=== PATIENT | female | born 1980 ===

== ENCOUNTER 2024-06-25 21:35 | Emergency (ER) | payer MEDICAID ==
[~2024-06-25] VITALS: Ht 172.7 cm; Wt 90.7 kg
[2024-06-25] MEDS ORDERED: ASPIRIN 81 MG TAB.CHEW ONE (22:21)
[2024-06-25] MEDS: ASPIRIN 81 MG TAB.CHEW PO ONE (22:23)
[2024-06-25] MEDS ORDERED: ACETAMINOPHEN 500 MG TABLET ONE (22:26)
[2024-06-25] MEDS: ACETAMINOPHEN 500 MG TABLET PO ONE (22:28)
[2024-06-25] MEDS: LORAZEPAM 0.5 MG TABLET PO ONE (22:29)
[2024-06-25] MEDS ORDERED: LORAZEPAM 1 MG TABLET ONE (22:29)
[2024-06-25 22:31] LABS: BASOPHILS % (AUTO) 0.5 % (0.0-2.0); EOSINOPHILS # (AUTO) 0.3 K/uL (0.0-0.7); EOSINOPHILS % (AUTO) 4.5 % (0.0-7.0); HEMATOCRIT 31.2 % (31.2-41.9); HEMOGLOBIN 9.8 g/dL (10.9-14.3); LYMPHOCYTES # (AUTO) 1.5 K/uL (0.8-4.8); LYMPHOCYTES % (AUTO) 25.7 % (20.5-51.5); MEAN CORPUSCULAR HEMOGLOBIN 21.9 uug (24.7-32.8); MEAN CORPUSCULAR HGB CONC 32 g/dL (32.3-35.6); MEAN CORPUSCULAR VOLUME 69.4 fL (75.5-95.3); MONOCYTES # (AUTO) 0.4 K/uL (0.1-1.30); MONOCYTES % (AUTO) 6.6 % (0.0-11.0); NEUTROPHILS # (AUTO) 3.6 K/uL (1.8-8.9); NEUTROPHILS % (AUTO) 62.7 % (38.5-71.5); PLATELET COUNT (AUTO) 130 K/uL (179-408); RED CELL DISTRIBUTION WIDTH 31.6 % (12.3-17.7); WHITE BLOOD COUNT (AUTO) 5.7 K/uL (3.8-11.8)
[2024-06-25 22:33] LABS: DIFFERENTIAL COMMENT 1
[2024-06-25 22:46] LABS: CALCIUM 9.3 mg/dL (8.5-10.1); CARBON DIOXIDE 27 mmol/L (21-32); CHLORIDE 102 mmol/L (98-107); CREATININE 0.5 mg/dL (0.6-1.3); GLUCOSE 122 mg/dL (74-106); POTASSIUM 5.5 mmol/L (3.5-5.1); SODIUM SERUM 138 mmol/L (136-145); UREA NITROGEN, BLOOD 11 mg/dL (7-18)
[2024-06-25 22:48] LABS: ETHANOL < 3 MG/DL (0-10)
[2024-06-25 22:53] LABS: ACETAMINOPHEN < 10.0 ug/mL (10-30); ALANINE AMINOTRANSFERASE 42 U/L (14-59); ALBUMIN 3.3 g/dL (3.4-5.0); ALKALINE PHOSPHATASE 45 U/L (50-136); ASPARTATE AMINOTRANSFERASE 65 U/L (15-37); BILIRUBIN,DIRECT 0.1 mg/dL (0.0-0.2); BILIRUBIN,TOTAL 0.4 mg/dL (0.2-1.0); TOTAL PROTEIN, SERUM 7.1 g/dL (6.4-8.2)
[2024-06-25 23:21] LABS: EOSINOPHILS % (MANUAL) 3 % (0-8); HYPOCHROMASIA 1+; LYMPHOCYTES % (MANUAL) 28 % (20-40); MONOCYTES % (MANUAL) 10 % (2-10); NEUTROPHILS % (MANUAL) 59 % (42-75); PLATELET ESTIMATE SLIGHT DECREASED
[2024-06-25 23:23] LABS: ANISOCYTOSIS 1+
[2024-06-26] MEDS ORDERED: LORAZEPAM 1 MG TABLET ONE (04:53)
[2024-06-26] MEDS ORDERED: ACETAMINOPHEN 500 MG TABLET ONE (04:55)
[2024-06-26] MEDS: LORAZEPAM 0.5 MG TABLET PO ONE (04:55)
[2024-06-26 05:00] VITALS: TEMP 98
[2024-06-26] MEDS: ACETAMINOPHEN 500 MG TABLET PO ONE (05:00)
[2024-06-26 08:00] VITALS: O2SAT 98
== END 2024-06-26 08:40 ==
LOC: ER 21:40
DX: R07.9 Chest pain, unspecified (principal); R45.851 Suicidal ideations; F20.9 Schizophrenia, unspecified; F31.9 Bipolar disorder, unspecified; F41.9 Anxiety disorder, unspecified; Z60.2 Problems related to living alone; Z20.822 Contact with and (suspected) exposure to COVID-19
CPT/HCPCS: 36415; 71045; 84484; 85025; A4606; A4663; A9150; G0480